=== PATIENT | male | born 1970 | race Caucasian/White ===

== ENCOUNTER 2024-11-26 13:26 | Emergency (ER) | payer BC, SELFPAY ==
[2024-11-26 13:30] VITALS: BP 151/100
--- NOTE | 2024-11-26 14:01 | ED.GENMED ---
History of Present Illness
General
Chief Complaint: Skin Problem
Source: patient
Time Seen by Provider: 11/26/24 13:33
History of Present Illness
History of Present Illness:
54-year-old male presenting the emergency department for evaluation after cutting his left middle finger on a piece of metal from a car part 30 minutes prior to arrival to the ER. Patient's tetanus is up-to-date, he is right-hand dominant, no other
injuries were sustained.
Past History
Past History
ED Past Medical History: Asthma and Other (Kidney injury 20 years ago)
ED Past Surgical History: Orthopedic
Patient has exhibited threatening behavior?: No
PSI?: No
Social History
Tobacco: Former smoker
Alcohol: Occasional
Drug: None
Personal:
Living: alone
Employment: Employed
Family History
Family History: Other (Noncontributory)
Review of Systems
Review of Systems
All Other Systems: ROS reviewed and negative except as documented in HPI and ROS
Phy Exam
Physical Exam
Physical Exam:
GENERAL: Alert , in no apparent distress
EYE: conjunctiva clear
Head: Normocephalic atraumatic
NECK: Supple,
ENT: mmm.
LUNGS: no acute respiratory distress
NEUROLOGICAL: Alert and oriented
SKIN: Warm and dry, 8 mm horizontally oriented laceration on the distalmost aspect of the middle phalanx, no active bleeding, superficial
MUSCULOSKELETAL: well perfused. Patient able to flex and extend at the PIP and DIP joint. Sensation grossly intact to light touch
PSYCH: Normal and appropriate interaction.
Scores
Heart Failure Risk
Heart Failure Risk Score: Not Applicable
Heart Score for Chest Pain Patients
STEMI patient?: Not applicable
Withdrawal Assessment of Alcohol
Withdrawal Assessment Completed?: Not applicable
Course
Vital Signs
Initial and Last Documented VS:
Initial Vital Signs
Temp Pulse Resp BP Pulse Ox
98 F 87 16 151/100 96
11/26/24 13:30 11/26/24 13:30 11/26/24 13:30 11/26/24 13:30 11/26/24 13:30
Last Documented Vital Signs
Temp Pulse Resp BP Pulse Ox
98 F 87 16 151/100 96
11/26/24 13:30 11/26/24 13:30 11/26/24 13:30 11/26/24 13:30 11/26/24 13:30
Procedures
Laceration Closure
Left Third Finger:
Status of Wound: clean
Size of Wound in cm: 0.8
Description of Wound Edges: sharp
Preparation: cleaned with saline
Type of Closure: Dermabond-skin glue
MDM/Problems Addressed
Differential Diagnosis Includes:
Superficial laceration, no concern for tendon or nerve injury
MDM/Problems Addressed:
54-year-old male presenting to the emergency department for evaluation of a left middle finger laceration. Laceration repaired as above without difficulty. Patient advised on wound care. Otherwise stable for discharge home.
*Pulse Oximetry
Patient hypoxic: no
*Critical Care Note
Total Time (30-74mins, 75-104mins- exclusive of procedures): Not Applicable
ED Attending Note
-
Portions of this chart may have been created with voice recognition software.� Occasional wrong word or��sound alike� substitutions may have occurred due to the inherent limitations of voice recognition software.
Discharge Plan
Departure
Patient Disposition: Home (Routine Discharge)
Date of Disposition: 11/26/24
Time of Disposition: 14:01
Patient with high blood pressure during this ER visit?: Yes
Discharge Problem:
Laceration of left middle finger
Instructions: Laceration Repair With Glue ED
Prescriptions:
No Action
albuterol sulfate [Ventolin HFA] 90 MCG/PUFF HFA aerosol inhaler
2 puff inhalation PRN PRN (Reason: prn)
prednisone 20 MG tablet
40 mg PO DAILY 5 Days Qty: 10 0RF
Rx Instructions:
40mg (2 x 20mg) daily for 5 days
albuterol sulfate 2.5 MG/3 ML solution for nebulization
2.5 mg inhalation Q6HPRN PRN (Reason: shortness of breath/wheezing) 30 Days Qty: 75 0RF
cefdinir 300 MG capsule
300 mg PO BID 4 Days Qty: 8 0RF
azithromycin 250 MG tablet
250 mg PO DAILY 3 Days Qty: 3 0RF
tamsulosin 0.4 MG capsule
0.4 mg PO DAILY Qty: 5 0RF
oxycodone-acetaminophen 5 MG/325 MG tablet
1 tab PO Q4HPRN PRN (Reason: pain) Qty: 7 0RF
cefdinir [Omnicef] 300 MG capsule
300 mg PO BID Qty: 10 1RF
prednisone 20 mg tablet
40 mg PO DAILY 7 Days Qty: 14 0RF
albuterol sulfate [ProAir HFA] 90 mcg/actuation HFA aerosol inhaler
1 puff inhalation Q4HPRN PRN (Reason: shortness of breath) Qty: 6.7 0RF
(DME) Aerochamber Mini Spacer
See Rx Instructions .Route Qty: 1 0RF
Rx Instructions:
As directed
amoxicillin-pot clavulanate 875-125 mg tablet
1 tab PO BID Qty: 20 0RF
azithromycin [Zithromax] 500 mg tablet
500 mg PO DAILY 3 Days Qty: 3 0RF
albuterol sulfate 90 mcg/actuation HFA aerosol inhaler
2 puff inhalation Q6H PRN (Reason: shortness of breath or wheezing) Qty: 6.7 0RF
prednisone 50 mg tablet
50 mg PO DAILY Qty: 5 0RF
albuterol sulfate 2.5 mg/0.5 mL solution for nebulization
2.5 mg inhalation Q4H PRN (Reason: shortness of breath or wheezing) Qty: 30 2RF
Referrals:
UNKNOWN - PT DOES,NOT KNOW [Family Provider] -
Interventions
Interventions:
*Risk Screen - Suicide Last Done: 11/26/24 13:30
*General Assessment Last Done: 11/26/24 13:33
*Neglect/Abuse Screening Last Done: 11/26/24 13:30
*ED- Fall Risk Assessment Last Done: 11/26/24 13:33
*ED COVID-19 Vaccine History Last Done: 11/26/24 13:33
*Nursing Disposition Last Done: 11/26/24 14:08
ED-Skin Assessment Last Done: 11/26/24 13:33
Discharge Date and Time
Discharge Date/Time: 11/26/24 14:09
Print Language: DANISH
== END 2024-11-26 14:09 | disposition home or self-care (01) ==
LOC: EMR 13:26
PROVIDERS: EMERGENCY PHYSICIAN Emergency Medicine
DX: S61.213A Laceration without foreign body of left middle finger without damage to nail, initial encounter (principal); W26.8XXA Contact with other sharp object(s), not elsewhere classified, initial encounter; Z87.891 Personal history of nicotine dependence; J45.909 Unspecified asthma, uncomplicated
CPT/HCPCS: 99282; 12001

== ENCOUNTER 2024-11-30 20:49 | Emergency (ER) | payer BC, SELFPAY ==
[2024-11-30 20:51] VITALS: BP 176/111
[2024-11-30 21:07] VITALS: BP 141/93
--- NOTE | 2024-11-30 21:24 | ED.GENMED ---
History of Present Illness
General
Chief Complaint: Breathing Problem
Source: patient
Exam Limitations: none
Time Seen by Provider: 11/30/24 21:06
History of Present Illness
History of Present Illness:
54yoM with a history of recurrent bronchitis presenting for evaluation of shortness of breath. Patient opened his pool a few days ago. There was some issue with the automatic visitor services assistant and he was trying to remove the cap about an hour ago. The
cap came off and he inhaled the chlorine fumes. He felt a burning sensation in his throat and has been coughing frequently. He is currently feeling improved but still feels a burning sensation when he breathes in deeply. He tried his inhaler
without any relief so came to the ED. He denies any history of asthma and denies tobacco use.
Past History
Past History
ED Past Medical History: Asthma and Other (Kidney injury 20 years ago)
ED Past Surgical History: Orthopedic
Patient has exhibited threatening behavior?: No
PSI?: No
Social History
Tobacco: Former smoker
Alcohol: Occasional
Drug: None
Personal:
Living: alone
Employment: Employed
Family History
Family History: Other (Noncontributory)
Phy Exam
General Physical Exam
General Presentation: well appearing and no apparent distress
General age: appears stated age
General Skin: warm and dry
General Habitus: normal
General Mental: alert
ENT Exam
ENT Exam: normocephalic
Cardiovascular Exam
Cardiovascular Exam: regular rate/rhythm
Pulmonary Exam
Pulmonary Exam: lungs clear, no respiratory distress, no rales, no crackles, no rhonchi and other (Frequent dry cough. No wheezing or rales noted.)
Neurological Exam
Neurological Exam: alert
Amalia Coma Scale
Eye Opening: Spontaneous
Verbal Response: Oriented
Motor Response: Obeys Commands
GCS Total Score: 15
Skin Exam
Skin Exam: normal color and warm/dry
Psychiatric Exam
Psychiatric Exam: normal mood/affect
Scores
Heart Failure Risk
Heart Failure Risk Score: Not Applicable
Course
Orders/Labs/Results
Orders:
Orders
11/30/24 21:23
Ipratropium/Albuterol Sulfate [Duoneb] 3 ml INH R NOW STA
CR Chest - 2 Views Urgent
Comment:
Reason For Exam: cough, SOB
Vital Signs
Initial and Last Documented VS:
Initial Vital Signs
Temp Pulse Resp BP Pulse Ox
98.7 F 88 16 176/111 98
11/30/24 20:51 11/30/24 20:51 11/30/24 20:51 11/30/24 20:51 11/30/24 20:51
Last Documented Vital Signs
Temp Pulse Resp BP Pulse Ox
98.7 F 76 20 122/70 95
11/30/24 20:51 11/30/24 22:37 11/30/24 22:37 11/30/24 23:00 11/30/24 23:40
MDM/Problems Addressed
Differential Diagnosis Includes:
54yoM here for cough, SOB, and chest burning after inhaling chloride 1 hour ago. Patient is hypertensive in triage with otherwise stable vital signs. Oxygen saturation 98% on room air. Patient has a frequent dry cough during exam but is speaking
in full sentences. Lungs clear to auscultation. Differential diagnosis includes but is not limited to: Chemical inhalation, bronchospasm, pneumonitis
Initial ED plan: Check chest x-ray and give DuoNeb.
*Critical Care Note
Total Time (30-74mins, 75-104mins- exclusive of procedures): Not Applicable
Update Note
Update Note:
Chest x-ray is clear per my interpretation. Patient feeling significantly improved on reassessment. Lungs remain clear. Patient stable for discharge. Refill given for albuterol inhaler. Advised follow-up with PCP and ED return precautions
reviewed. He expressed understanding and is in agreement with plan. He left in stable condition.
ED Attending Note
-
Portions of this chart may have been created with voice recognition software.� Occasional wrong word or��sound alike� substitutions may have occurred due to the inherent limitations of voice recognition software.
Discharge Plan
Departure
Patient Disposition: Home (Routine Discharge)
Date of Disposition: 11/30/24
Time of Disposition: 23:18
Patient with high blood pressure during this ER visit?: No
Discharge Problem:
Exposure to chemical inhalation
Instructions: Wheezing in adults - ED discharge instructions
Prescriptions:
New
albuterol sulfate 90 mcg/actuation HFA aerosol inhaler
2 puff inhalation Q6H PRN (Reason: shortness of breath or wheezing) Qty: 8.5 0RF
No Action
albuterol sulfate [Ventolin HFA] 90 MCG/PUFF HFA aerosol inhaler
2 puff inhalation PRN PRN (Reason: prn)
prednisone 20 MG tablet
40 mg PO DAILY 5 Days Qty: 10 0RF
Rx Instructions:
40mg (2 x 20mg) daily for 5 days
albuterol sulfate 2.5 MG/3 ML solution for nebulization
2.5 mg inhalation Q6HPRN PRN (Reason: shortness of breath/wheezing) 30 Days Qty: 75 0RF
cefdinir 300 MG capsule
300 mg PO BID 4 Days Qty: 8 0RF
azithromycin 250 MG tablet
250 mg PO DAILY 3 Days Qty: 3 0RF
tamsulosin 0.4 MG capsule
0.4 mg PO DAILY Qty: 5 0RF
oxycodone-acetaminophen 5 MG/325 MG tablet
1 tab PO Q4HPRN PRN (Reason: pain) Qty: 7 0RF
cefdinir [Omnicef] 300 MG capsule
300 mg PO BID Qty: 10 1RF
prednisone 20 mg tablet
40 mg PO DAILY 7 Days Qty: 14 0RF
albuterol sulfate [ProAir HFA] 90 mcg/actuation HFA aerosol inhaler
1 puff inhalation Q4HPRN PRN (Reason: shortness of breath) Qty: 6.7 0RF
(DME) Aerochamber Mini Spacer
See Rx Instructions .Route Qty: 1 0RF
Rx Instructions:
As directed
amoxicillin-pot clavulanate 875-125 mg tablet
1 tab PO BID Qty: 20 0RF
azithromycin [Zithromax] 500 mg tablet
500 mg PO DAILY 3 Days Qty: 3 0RF
albuterol sulfate 90 mcg/actuation HFA aerosol inhaler
2 puff inhalation Q6H PRN (Reason: shortness of breath or wheezing) Qty: 6.7 0RF
prednisone 50 mg tablet
50 mg PO DAILY Qty: 5 0RF
albuterol sulfate 2.5 mg/0.5 mL solution for nebulization
2.5 mg inhalation Q4H PRN (Reason: shortness of breath or wheezing) Qty: 30 2RF
Referrals:
Anuj Ramos CRNP [Family Provider] -
Activity Restrictions/Additional Instructions:
Use inhaler as needed for wheezing.
Please follow-up with your family doctor. Return to the ER with any new or worsening symptoms.
Interventions
Interventions:
*Risk Screen - Suicide Last Done: 11/30/24 20:51
*General Assessment Last Done: 11/30/24 21:13
*Neglect/Abuse Screening Last Done: 11/30/24 20:51
*ED- Fall Risk Assessment Last Done: 11/30/24 21:13
*ED COVID-19 Vaccine History Last Done: 11/30/24 21:13
*Nursing Disposition Last Done: 11/30/24 23:40
ED- Cardiac Assessment Last Done: 11/30/24 21:13
ED- Pulmonary Assessment Last Done: 11/30/24 23:40
Discharge Date and Time
Discharge Date/Time: 11/30/24 23:40
Print Language: VIET[place]ESE
[2024-11-30] MEDS: DUONEB 3 ML INH (21:29)
[2024-11-30 22:00] VITALS: BP 137/83
[2024-11-30 23:00] VITALS: BP 122/70
== END 2024-11-30 23:40 | disposition home or self-care (01) ==
LOC: EMR 20:49
PROVIDERS: EMERGENCY PHYSICIAN Student in an Organized Health Care Education/Training Program; FAMILY PHYSICIAN Registered Nurse
DX: T59.4X1A Toxic effect of chlorine gas, accidental (unintentional), initial encounter (principal); R09.89 Other specified symptoms and signs involving the circulatory and respiratory systems; J45.909 Unspecified asthma, uncomplicated; Z87.891 Personal history of nicotine dependence
CPT/HCPCS: 94640; 99283; 71046